=== PATIENT | female | born 2000 | race Caucasian/White ===

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

== ENCOUNTER 2020-07-25 12:00 | Emergency (ER) | payer SELFPAY ==
[~2020-07-25] VITALS: Ht 172.7 cm; Wt 104.5 kg
[~2020-07-25 12:00] MED LIST changes: +IBU800 M1 PO; +PERCOCET 325 MG1 TA2 PO
[2020-07-25 12:09] VITALS: TEMP 98.5
[2020-07-25] MEDS ORDERED: CLEOCIN HCL300 MG PO (12:31)
[2020-07-25 12:55] VITALS: BP 130/75; PULSE 73
== END 2020-07-25 12:55 | disposition home or self-care (01) ==
LOC: COL.ER 12:00
DX: K04.7 Periapical abscess without sinus (principal); Z88.1 Allergy status to other antibiotic agents
CPT/HCPCS: J1885

== ENCOUNTER 2021-06-24 10:35 | Emergency (ER) | payer MEDICAID ==
[~2021-06-24] VITALS: Ht 172.7 cm; Wt 113.6 kg
[~2021-06-24 10:35] MED LIST changes: +CLEOCIN HCL300 MG PO
[2021-06-24 10:55] VITALS: BP 105/93; TEMP 97.8
[2021-06-24 11:34] LABS: BASO % 0.3 % (0.0-2.0); EOS # 0.5 K/mm3 (0.0-0.7); EOS % 4.3 % (0.0-4.0); GRAN # 7.6 K/mm3 (1.4-6.5); GRAN % 69.2 % (42.2-75.2); HEMATOCRIT 42.1 % (37.0-47.0); HEMOGLOBIN 14.7 g/dl (12.5-16.0); LYMPH # 2.3 K/mm3 (1.2-3.4); LYMPH % 21.1 % (20.0-51.0); MEAN CELL VOLUME 86 fl (80.0-100.0); MEAN CORPUSCULAR HEMOGLOBIN 30 pg (27-31); MEAN CORPUSCULAR HGB CONC 35 g/dl (33.0-37.0); MEAN PLATELET VOLUME 10.6 fl (7.4-10.4); MONO # 0.5 K/mm3 (0.1-0.6); MONO % 4.8 % (1.7-9.3); PLATELET COUNT 278 K/mm3 (130-400); RED BLOOD COUNT 4.88 M/mm3 (4.10-5.30); REDCELL DISTRIBUTION WIDTH-CV 11.8 % (11.5-14.5)
[2021-06-24 11:50] LABS: CALCIUM 8.8 mg/dL (8.4-10.2); CREATININE, serum 0.73 mg/dL (0.57-1.11); POTASSIUM 4.1 mmol/L (3.5-4.5)
[2021-06-24] MEDS ORDERED: ANUSOL-HC SUPPO25 MG RC (12:21)
[2021-06-24 12:34] VITALS: PULSE 84
== END 2021-06-24 12:34 | disposition home or self-care (01) ==
LOC: COL.ER 10:35
PROVIDERS: Physician Assistant
DX: K64.4 Residual hemorrhoidal skin tags (principal)

== ENCOUNTER 2021-07-30 20:44 | Emergency (ER) | payer MEDICAID ==
[~2021-07-30] VITALS: Ht 172.7 cm; Wt 104.5 kg
[~2021-07-30 20:44] MED LIST changes: +ANUSOL-HC SUPPO25 MG RC
[2021-07-30 21:01] VITALS: TEMP 97.5
[2021-07-30] MEDS ORDERED: CEPHALEXIN500 M1 PO (22:01)
[2021-07-30 22:25] VITALS: BP 114/80; PULSE 64
== END 2021-07-31 01:22 | disposition home or self-care (01) ==
LOC: COL.ER 20:44
DX: S81.811A Laceration without foreign body, right lower leg, initial encounter (principal); Z23 Encounter for immunization; Z88.1 Allergy status to other antibiotic agents; Z28.310 Unvaccinated for COVID-19; W25.XXXA Contact with sharp glass, initial encounter